=== PATIENT | female | born 1960 | race Caucasian/White ===

== ENCOUNTER 2021-01-27 16:47 | Emergency (ER) | payer OTHER ==
[~2021-01-27] VITALS: Ht 154.9 cm; Wt 57.1 kg
[2021-01-27] MEDS ORDERED: OXYBUTYNIN 5 MG5 M1 PO (17:51)
[2021-01-27] MEDS ORDERED: PERCOCET 5-3251 EACH PO (17:52)
[2021-01-27] MEDS ORDERED: ONDANSETRON ODT4 MG PO (17:52)
[2021-01-27] MEDS ORDERED: LEVOXYL88 MCG PO (17:53)
[2021-01-27] MEDS ORDERED: NEURONTIN100 MG PO (17:54)
[2021-01-27] MEDS ORDERED: ELIQUIS5 MG PO (17:55)
[2021-01-27] MEDS ORDERED: MIRTAZAPINE7.5 MG PO (17:56)
[2021-01-27 18:05] LABS: URINE BILIRUBIN NEGATIVE (Negative); URINE BLOOD 2+ (Negative); URINE CLARITY CLEAR; URINE COLOR YELLOW; URINE GLUCOSE-RANDOM* NEGATIVE (Negative); URINE KETONES 1+ (Negative); URINE LEUKOCYTES-REFLEX 2+ (Negative); URINE NITRITE-REFLEX NEGATIVE (Negative); URINE PROTEIN (DIPSTICK) TRACE (Negative); URINE UROBILINOGEN 0.2 E.U./dl (0.2-1.0)
[2021-01-27 18:25] LABS: CASTS None Seen /LPF (None Seen); SQUAMOUS 0-3 Few /LPF (0-3); URINE RBC 3-10 Few /HPF (NONE SEEN); URINE WBC-REFLEX 6-15 Few /HPF (0-5)
[2021-01-27 18:27] LABS: BACTERIA-REFLEX 1-9 Few /HPF (None Seen); CRYSTALS None Seen /LPF (None Seen)
[2021-01-27 18:41] LABS: ABSOLUTE NEUTROPHILS 7.3 thou/uL (1.4-8.2); BASOPHILS 0.6 % (0.0-2.0); EOSINOPHILS 1.2 % (0.0-3.0); HEMOGLOBIN 10.4 gm/dL (12.0-15.0); LYMPHOCYTES 7.5 % (24.0-44.0); MCH 28.7 pg (26.0-34.0); MCHC 33.5 g/dL (28.0-37.0); MCV 85.7 fL (80.0-100.0); MONOCYTES 8.9 % (1.0-8.0); PLATELET COUNT 429 thou/uL (150-400); POLYS 81.8 % (36.0-66.0); RBC 3.62 mil/uL (4.20-5.00); RDW 12.7 % (10.5-14.5); WBC 8.9 thou/uL (4.0-11.0)
[2021-01-27 18:59] LABS: ANION GAP 9 mmol/L (7-16); BUN 16 mg/dL (7-18); CALCIUM 9.2 mg/dL (8.5-10.1); CHLORIDE 97 mmol/L (98-107); CO2 31 mmol/L (21-32); CREATININE 1.4 mg/dL (0.6-1.0); GLUCOSE 106 mg/dL (74-106); SODIUM 137 mmol/L (136-145)
[2021-01-27 19:06] LABS: AMYLASE 96 U/L (25-115); DIRECT BILIRUBIN < 0.1 mg/dL (<0.1-0.2); LIPASE 240 U/L (73-393); SGOT 71 U/L (15-37); SGPT 55 U/L (14-59); TOTAL BILIRUBIN 0.5 mg/dL (0.2-1.0); TOTAL PROTEIN 7.5 g/dL (6.4-8.2)
[2021-01-27] MEDS ORDERED: MACROBID 100 M100 M1 PO (20:09)
[2021-01-27] MEDS ORDERED: STOOL SOFTENER240 MG PO (20:09)
[2021-01-27 20:35] VITALS: BP 121/64
== END 2021-01-27 20:32 | disposition home or self-care (01) ==
LOC: ER 16:47
PROVIDERS: Emergency Medicine
DX: K59.03 Drug induced constipation (principal); T40.2X5A Adverse effect of other opioids, initial encounter; N39.0 Urinary tract infection, site not specified; I10 Essential (primary) hypertension; Z85.41 Personal history of malignant neoplasm of cervix uteri; Z86.718 Personal history of other venous thrombosis and embolism; Z86.711 Personal history of pulmonary embolism; Z98.890 Other specified postprocedural states; Z98.51 Tubal ligation status; Z90.89 Acquired absence of other organs; Z79.899 Other long term (current) drug therapy; Z88.8 Allergy status to other drugs, medicaments and biological substances; Y92.89 Other specified places as the place of occurrence of the external cause